=== PATIENT | female | born 1980 | race Caucasian/White ===

== ENCOUNTER 2022-01-02 06:20 | Inpatient (IN) | payer OTHER ==
[2022-01-02] MEDS ORDERED: CITRIC ACID/SODIUM CITRATE 30 ML UNIT-DOSE CUP PO ONE ×2 (06:30→06:58)
[2022-01-02] MEDS ORDERED: ELECTROLYTE-148 SOLN 1,000 ML IV SCH (06:30)
[2022-01-02] MEDS: DEXTROSE 5%-LACTATED RINGERS 1,000 ML IV SCH (07:00)
[2022-01-02] MEDS: ELECTROLYTE-148 SOLN 1,000 ML IV SCH (07:00)
[2022-01-02 07:14] VITALS: BMI 32.9
[2022-01-02] MEDS ORDERED: ACETAMINOPHEN INJECTION 100 ML IVPB ONE (08:08)
[2022-01-02] MEDS ORDERED: OXYTOCIN 20 UNITS in 0.9% NS 20 UNIT/1,000 ML INFUS.BAG IV ONE (08:08)
[2022-01-02] MEDS ORDERED: PHENYLEPHRINE HCL 10 MG/1 ML SINGLE DOSE VIAL ONE (08:10)
[2022-01-02] MEDS ORDERED: morphine SULFATE/PF 1 MG/2 ML (2cc Syringe - QUVA) ONE (08:10)
[2022-01-02] MEDS ORDERED: ePHEDrine SULFATE 50 MG/1 ML AMPULE ONE (08:10)
[2022-01-02] MEDS ORDERED: SODIUM CHLORIDE 0.9% P/F 10 ML VIAL IJ ONE (08:11)
[2022-01-02] MEDS ORDERED: ceFAZolin SODIUM 1 GM VIAL ONE (08:27)
[2022-01-02] MEDS ORDERED: OXYTOCIN 10 UNITS/ML VIAL ONE (08:30)
[2022-01-02] MEDS ORDERED: ONDANSETRON 4 MG/2 ML VIAL ONE (08:51)
[2022-01-02 10:07] LABS: CORD BASE EXCESS -6.8 mmol/L (0-2); CORD HCO3 19.9 mmHg (20-29); CORD HCO3 20.6 mmHg (20-29); CORD PCO2 48.2 mmHg (30-78); CORD PCO2 61.1 mmHg (30-78); CORD pH 7.249 (7.14-7.44)
[2022-01-02] MEDS ORDERED: ONDANSETRON 4 MG/2 ML VIAL IVPUSH PRN (10:16)
[2022-01-02] MEDS ORDERED: IBUPROFEN 600 MG TABLET (FP) PO PRN (10:27)
[2022-01-02] MEDS ORDERED: ACETAMINOPHEN 325 MG TABLET (FP) PO PRN (10:27)
[2022-01-02] MEDS: OXYTOCIN 20 UNITS in 0.9% NS 20 UNIT/1,000 ML INFUS.BAG IV SCH (10:30)
[2022-01-02] MEDS: oxyCODONE HCL 5 MG TABLET PO PRN (13:53)
[2022-01-02] MEDS ORDERED: oxyCODONE HCL 5 MG TABLET PO PRN (22:27)
[2022-01-03] MEDS: SIMETHICONE 80 MG TAB.CHEW (FP) PO PRN ×4 (05:43→19:28)
[2022-01-03] MEDS: oxyCODONE HCL 5 MG TABLET PO PRN ×4 (05:43→19:28)
[2022-01-03 09:14] LABS: BASO % 0.2 % (0-2.0); HEMATOCRIT 27.1 % (32.4-45.2); HEMOGLOBIN 9.7 GM/dL (10.7-15.3); LYMPH % 12.8 % (8-40); MCH 33.7 pg (25.7-33.7); MCHC 35.7 g/dl (32.0-36.0); MEAN CELL VOLUME 94.2 fl (80-96); MEAN PLT VOLUME 6.5 fl (7.5-11.1); MONO % 8.2 % (3.8-10.2); NEUT % 77.8 % (42.8-82.8); PLATELET COUNT 357 10^3/uL (134-434); RBC 2.87 M/mm3 (3.60-5.2); RDW 14.3 % (11.6-15.6); WHITE BLOOD COUNT 12.2 K/mm3 (4.0-10.0)
[2022-01-03] MEDS: FERROUS SO4 325 MG TABLET (FP) PO SCH ×2 (09:30→21:50)
[2022-01-03] MEDS: ELECTROLYTE-148 SOLN 1,000 ML IV SCH (19:58)
[2022-01-03] MEDS: DEXTROSE 5%-LACTATED RINGERS 1,000 ML IV SCH (19:58)
[2022-01-03] MEDS: OXYTOCIN 20 UNITS in 0.9% NS 20 UNIT/1,000 ML INFUS.BAG IV SCH (19:59)
[2022-01-03] MEDS: IBUPROFEN 600 MG TABLET (FP) PO PRN (20:19)
[2022-01-03] MEDS: DOCUSATE SODIUM 100 MG CAPSULE (FP) PO SCH (21:50)
[2022-01-04] MEDS: SIMETHICONE 80 MG TAB.CHEW (FP) PO PRN ×5 (00:20→22:50)
[2022-01-04] MEDS: IBUPROFEN 600 MG TABLET (FP) PO PRN ×5 (00:20→22:50)
[2022-01-04] MEDS: FERROUS SO4 325 MG TABLET (FP) PO SCH ×2 (09:13→22:06)
[2022-01-04] MEDS: DOCUSATE SODIUM 100 MG CAPSULE (FP) PO SCH ×2 (09:13→22:06)
[2022-01-05] MEDS: SIMETHICONE 80 MG TAB.CHEW (FP) PO PRN (04:18)
[2022-01-05] MEDS: IBUPROFEN 600 MG TABLET (FP) PO PRN ×2 (04:18→09:28)
[2022-01-05] MEDS: FERROUS SO4 325 MG TABLET (FP) PO SCH (09:28)
[2022-01-05] MEDS: DOCUSATE SODIUM 100 MG CAPSULE (FP) PO SCH (09:28)
[2022-01-05 10:25] LABS: BASO % 0.6 % (0-2.0); HEMOGLOBIN 9.9 GM/dL (10.7-15.3); MCH 34.4 pg (25.7-33.7); MCHC 36.6 g/dl (32.0-36.0); MEAN PLT VOLUME 6.8 fl (7.5-11.1); MONO % 7.1 % (3.8-10.2); NEUT % 71.3 % (42.8-82.8); PLATELET COUNT 408 10^3/uL (134-434); RBC 2.88 M/mm3 (3.60-5.2); RDW 13.8 % (11.6-15.6); WHITE BLOOD COUNT 10.8 K/mm3 (4.0-10.0)
[2022-01-05 11:03] VITALS: BP 111/74; PULSE 78; TEMP 98.2
== END 2022-01-05 12:45 | disposition home or self-care (01) | DRG 540 ==
LOC: JLDR 06:20 → J3W 12:10
PROVIDERS: ADMIT Obstetrics & Gynecology Maternal & Fetal Medicine; ATTEND Obstetrics & Gynecology Maternal & Fetal Medicine
PROC: 10D00Z1 Extraction of Products of Conception, Low, Open Approach (ICD-10-PCS; principal; 2022-01-02)
DX: O82 Encounter for cesarean delivery without indication (principal); O90.81 Anemia of the puerperium; Z3A.39 39 weeks gestation of pregnancy; Z37.0 Single live birth
CPT/HCPCS: 36415; 36600; 82803; 85025; 88307-TC